=== PATIENT | female | born 1925 | race Caucasian/White ===

== ENCOUNTER 2016-12-15 12:42 | Inpatient (IN) | payer MEDICARE, OTHER ==
[2016-12-15] VITALS (8 sets, daily range): BP systolic 95–120; BP diastolic 52–84; PULSE 73–82; RESP 14–22; O2SAT 93–100
[~2016-12-15] VITALS: Ht 165.1 cm; Wt 52.1 kg
[~2016-12-15 12:42] MED LIST: levoquin PO
--- NOTE | 2016-12-15 13:44 | ED.REPORT ---
HPI-Abd Pain F 40 and Over Date of Service Dec 15, 2016 ED Provider: Benito Oneil MD An 89 year old female with a history of achalasia and uterine cancer presents to the ED complaining of upper abdominal pain that began 2 days ago. Patient has also been experiencing nausea. Her last bowel movement was 2 days ago. She denies vomiting or fever. Patient was seen on 11/11 for nausea and discharged home in good condition. Nursing Notes Stated Complaint: ABDOMINAL PAIN/NAUSEA/LIGHT HEADED Chief Complaint: Female Abdominal Pain Nursing Notes Reviewed: Yes Allergies: Coded Allergies: Penicillins (Verified Allergy, Severe, 12/15/16) Scheduled Aspirin Chew (Aspirin Chew) 81 Mg Chew 81 MG PO DAILY Levofloxacin (Levaquin) 500 Mg Tablet 500 MG PO DAILYAC Metoprolol Tartrate (Metoprolol Tartrate) 25 Mg Tablet 25 MG PO BID Scheduled PRN ([Acetaminophen]) 325 MG TABLET 325 MG PO Q6 PRN PRN For Mild Pain General Time Seen by MD: 12:56 Chief Complaint Abdominal pain Hx Obtained From: Patient Arrived By: Walk-in Sudden in Onset?: No Onset Occurred: 2 days ago Symptom Duration: Since onset Progression since Onset: Unchanged Location: : Diffuse Quality: Painful Radiation: : Does not radiate Severity: Current: Mild Severity: Maximum: Moderate Associated with: Reports: Nausea, Vomiting Pertinent Negative: Pt denies other symptoms Recent Healthcare: No recent doctor visit, Recent hospitalization (11/11: Nausea) Risk Factors )( AAA Risk Stratification Risk factors reviewed Past Medical History Past Medical History Notes: PCP: Dr. Henry Past Medical History Achalasia Uterine cancer UTI Past Surgical History Achalasia Smoking History Unknown if Ever Smoker Social History Other Social History: Good social support, Local resident Ambulatory Status Independent Review of Systems Constitutional: Denies: Chills, Fever Respiratory: Denies: Shortness of breath Cardiovascular: Denies: Chest pain GI: Reports: Abdominal pain, Constipation, Nausea, Denies: Vomiting Complete sys rev & neg: except as marked. Physical Exam Vital Signs Initial VS: Reviewed Head / Eyes: Atraumatic, Normocephalic, PERRL Extremities: Vascular intact, Neuro intact, No swelling, No tenderness Skin: Warm, Dry, No cyanosis Neurologic: Alert, Oriented, Nonfocal Psychiatric: Mood/affect normal, Behavior normal, Normal thought content General/Constitutional: Awake, Alert Respiratory / Chest: Atraumatic, Breath sounds NL, Breath sounds = bilat Cardiovascular: Heart rate NL, Regular rhythm, Heart sounds NL, No gallop, No murmurs, No rubs Abdomen: Atraumatic, Soft Tenderness/Guarding/Rebound: Positive: Tender epigastric Back: Atraumatic, Inspection NL Interpretation & Diagnostics Lab Results Interpretation Result Diagram: 12/19/16 0604 12/19/16 0604 Test 12/15/16 14:40 12/15/16 14:57 12/15/16 17:00 Urine Legionella pneumophilia Ag Negative (Negative) Urine Color Yellow (YELLOW) Urine Appearance Clear (CLEAR,HAZY) Urine pH 5.0 (5.0-8.0) Urine Specific [place] 1.025 (1.003-1.035) Urine Protein Tracemg/dL (NEG,TRACE) Urine Glucose (UA) Negativemg/dL (NEGATIVE) Urine Ketones Tracemg/dL (NEGATIVE) Urine Occult Blood Negative (NEGATIVE) Urine Nitrite Negative (NEGATIVE) Urine Bilirubin Negative (NEGATIVE) Urine Urobilinogen Normalmg/dL (NORMAL) Urine Leukocyte Esterase Negative (NEGATIVE) Urine RBC 0-2/hpf (0-2) Urine WBC 0-5/hpf (0-5) Urine Epithelial Cells None/hpf (NONE-MOD) Urine Crystals None seen (NONE SEEN) Urine Bacteria Few/hpf (NONE-FEW) Urine Hyaline Casts None/lpf (NONE) Urine Granular Casts None seen (NONE SEEN) Urine Waxy Casts None seen (NONE SEEN) Urine Red Blood Cell Casts None seen (NONE SEEN) Urine White Blood Cell Casts None seen (NONE SEEN) Urine Mucus None seen (None Seen) Urine Trichomonas None seen (NONE SEEN) Urine Yeast None (NONE SEEN) Urinalysis Comment Amorphous sediment Urine Culture Reflexed Not indicated Prothrombin Time 11.1sec (8.1-12.5) Prothromb Time International Ratio 1.04ratio Re-Eval/Medical Decision Med Decision/Clinical Course I assumed care of this patient at approximately [address] Oneil. EK:13 Sinus Rhythm - 81 BPM Left axis deviation No ST segment elevation Inverted T waves in the lateral leads When compared to prior dated 11/11/16, lateral T wave inversions are new. Labs: CBC: unremarkable Chemistry: unremarkable Lactic acid 2.8 Troponin: 0.995 Treated in the ED with: Nitroglycerin Aspirin Morphine Heparin bolus and infusion Consulted with Dr. Limon, Metal Checker - 16:28 Agrees with my evaluation and plan for heparinization, will not take to pie bakery laborer at this moment. Accepts consult. Consulted with Dr. Herrera Hospitalist - 16:[address] Hutchinson. Consulted with Aubrey Jimenezist - 16:55 Agrees with diagnosis and plan. Accepts admission. Dx: NSTEMI Repeat EKG is unchanged at 1705, continues to have inverted T waves in lateral leads. This patient was a very challenging historian and unable to provide much information. She reported epigastric pain both to Dr. Oneil as well as myself. At the time I assumed involvement in her care she was pending EKG. At the time that do ischemic changes were noted troponin was added to her workup and resulted as positive. She was aggressively treated at that time as above and cardiology was consulted. She was admitted for further management and remained hemodynamically stable. She reported improvement in her chest pain with nitroglycerin and morphine. Counseled Regarding: Diagnosis, Lab results, Need for admission Discharge & Departure Shift Change Sign-Out Patient Care Transferred: Yes Discussed Complaint(s): Yes Laboratory Evaluation: Ordered, not yet done Response to Therapy: Unchanged Dr. Sanjay Chavis Primary Impression: NSTEMI (non-ST elevated myocardial infarction) Additional Impressions: Chest pain Chest pain type: chest pain due to myocardial ischemia Qualified Code: I20.9 - Angina pectoris, unspecified Epigastric pain Elevated lactic acid level Elevated troponin I level Disposition: ADMITTED TO HOSPITAL Discharge Condition All VS Reviewed: Yes Condition: Stable Referrals: Atilio Henry MD (PCP) Care Transferred to: Dr. Chavis Care Transferred at: 15:00 Crit Care Except Billable Proc Time Spent: 105-134 minutes Services Performed: Patient management by me, Time spent at bedside, Reviewing test results, Reviewing imaging, Discussing patient care, Documentation in record, Time with fam/surrogate Critical Care Notes: Sanjay Herzog Attestation Portions of this note were transcribed by Phong Capone. I, Dr. Oneil personally performed the history, physical exam and medical decision-making; I reviewed and confirmed the accuracy of the information in the transcribed note. Signed by: Rosenda Estrella, 12/15/16 1500. copies to: Atilio Henry MD, Benito Rock MD Dec 15, 2016 13:44 PHONG CAPONE Dec 15, 2016 13:52 JINA CLAIRE Dec 15, 2016 16:26 Sanjay Chavis MD Dec 15, 2016 22:11 Urine White Blood Cell Casts None seen (NONE SEEN) Urine Mucus None seen (None Seen) Urine Trichomonas None seen (NONE SEEN) Urine Yeast None (NONE SEEN) Urinalysis Comment Amorphous sediment Urine Culture Reflexed Not indicated Prothrombin Time 11.1sec (8.1-12.5) Prothromb Time International Ratio 1.04ratio Re-Eval/Medical Decision Med Decision/Clinical Course I assumed care of this patient at approximately [address] Oneil. EK:13 Sinus Rhythm - 81 BPM Left axis deviation No ST segment elevation Inverted T waves in the lateral leads When compared to prior dated 11/11/16, lateral T wave inversions are new. Labs: CBC: unremarkable Chemistry: unremarkable Lactic acid 2.8 Troponin: 0.995 Treated in the ED with: Nitroglycerin Aspirin Morphine Heparin bolus and infusion Consulted with Dr. Limon, Metal Checker - 16:28 Agrees with my evaluation and plan for heparinization, will not take to pie bakery laborer at this moment. Accepts consult. Consulted with Dr. Herrera Hospitalist - 16:[address] Hutchinson. Consulted with Dr. Hutchinson, Hospitalist - 16:55 Agrees with diagnosis and plan. Accepts admission. Dx: NSTEMI Repeat EKG is unchanged at 1705, continues to have inverted T waves in lateral leads. This patient was a very challenging historian and unable to provide much information. She reported epigastric pain both to Dr. Oneil as well as myself. At the time I assumed involvement in her care she was pending EKG. At the time that do ischemic changes were noted troponin was added to her workup and resulted as positive. She was aggressively treated at that time as above and cardiology was consulted. She was admitted for further management and remained hemodynamically stable. She reported improvement in her chest pain with nitroglycerin and morphine. Counseled Regarding: Diagnosis, Lab results, Need for admission Discharge & Departure Shift Change Sign-Out Patient Care Transferred: Yes Discussed Complaint(s): Yes Laboratory Evaluation: Ordered, not yet done Response to Therapy: Unchanged Dr. Sanjay Chavis Primary Impression: NSTEMI (non-ST elevated myocardial infarction) Additional Impressions: Chest pain Chest pain type: chest pain due to myocardial ischemia Qualified Code: I20.9 - Angina pectoris, unspecified Epigastric pain Elevated lactic acid level Elevated troponin I level Disposition: ADMITTED TO HOSPITAL Discharge Condition All VS Reviewed: Yes Condition: Stable Referrals: Atilio Henry MD (PCP) Care Transferred to: Dr. Chavis Care Transferred at: 15:00 Crit Care Except Billable Proc Time Spent: 105-134 minutes Services Performed: Patient management by me, Time spent at bedside, Reviewing test results, Reviewing imaging, Discussing patient care, Documentation in record, Time with fam/surrogate Critical Care Notes: Sanjay Herzog Attestation Portions of this note were transcribed by Phong Capone. I, Dr. Oneil personally performed the history, physical exam and medical decision-making; I reviewed and confirmed the accuracy of the information in the transcribed note. Signed by: Rosenda Estrella, 12/15/16 1500. copies to: Atilio Henry MD, Donald L MD Dec 15, 2016 13:44 PHONG CAPONE Dec 15, 2016 13:52 JINA CLAIRE Dec 15, 2016 16:26 Sanjay Chavis MD Dec 15, 2016 22:11 Shift Change Sign-Out Patient Care Transferred: Yes Discussed Complaint(s): Yes Laboratory Evaluation: Ordered, not yet done Response to Therapy: Unchanged Dr. Chavis Primary Impression: NSTEMI (non-ST elevated myocardial infarction) Disposition: ADMITTED TO HOSPITAL Discharge Condition All VS Reviewed: Yes Condition: Stable Referrals: Atilio Henry MD (PCP) Care Transferred to: Dr. Chavis Care Transferred at: 15:00 Scribe Attestation Portions of this note were transcribed by Phong Capone. I, Dr. Oneil personally performed the history, physical exam and medical decision-making; I reviewed and confirmed the accuracy of the information in the transcribed note. Signed by: Rosenda Estrella, 12/15/16 1500. copies to: Atilio Henry MD, Donald L MD Dec 15, 2016 13:44 PHONG CAPONE Dec 15, 2016 13:52 JINA CLAIRE Dec 15, 2016 16:26
[2016-12-15 13:50] LABS: BASOPHILS % (AUTO) 0.1 % (0-3); EOSINOPHILS % (AUTO) 0.2 % (0-5); MONOCYTES % (AUTO) 8.2 % (4-12); Mean Corpuscular Hemoglobin 29.9 pg (27.0-35.0); Mean Corpuscular Volume 90.1 fL (81-100); NEUTROPHILS % (AUTO) 75.1 % (40-74); Platelet Count 173 bil/L (150-400)
[2016-12-15 14:19] LABS: Magnesium 2.1 mg/dL (1.6-2.6)
[2016-12-15] MEDS ORDERED: 0.9% Sodium Chloride 1,000 ML IV ONE (14:30)
[2016-12-15] MEDS: Ondansetron 2 mg/mL 2 mL Inj IVPUSH PRN ×5 (14:45→21:32)
[2016-12-15] MEDS: HYDROmorphone 0.5 mg/0.5 mL iSecure Syringe IVPUSH PRN ×2 (14:57→16:31)
[2016-12-15 15:44] LABS: APPEARANCE,URINE CLEAR (CLEAR,HAZY); COLOR,URINE YELLOW (YELLOW)
[2016-12-15 15:45] LABS: OCCULT BLOOD,URINE NEGATIVE (NEGATIVE); UROBILINOGEN,URINE NORMAL (NORMAL)
[2016-12-15] MEDS ORDERED: Heparin 25K Unit/500mL 0.45 NS 25,000 UNIT in IV Premix 1 EACH IV ONE (16:30)
[2016-12-15] MEDS ORDERED: Heparin 5,000 Unit/mL Inj IVPUSH ONE (16:30)
[2016-12-15] MEDS ORDERED: Alum-Mag Hydrox-Simeth 30 mL Suspension PO PRN ×2 (17:00→17:10)
[2016-12-15] MEDS ORDERED: Atropine 1 mg/10 mL (Code) Syringe IVPUSH PRN (17:00)
[2016-12-15] MEDS ORDERED: Polyethylene Glycol (PEG) 17 Gm Powder PO PRN ×2 (17:00→17:10)
[2016-12-15] MEDS ORDERED: Senna-Docusate 8.6-50 mg Tablet PO PRN (17:00)
[2016-12-15] MEDS ORDERED: Heparin 25K Unit/500mL 0.45 NS 25,000 UNIT in IV Premix 1 EACH IV SCH (17:10)
--- NOTE | 2016-12-15 17:21 | PCM.HPMED ---
Subjective Date of Service Dec 15, 2016 Primary Provider: Admitting Physician: Primary Care Physician: Atilio Henry MD Attending Physician: Admit Status: Admit to [facility], [facility] Telemetry Chief Complaint: Two day history of epigastric pain . History of Present Illness: Mrs. Whitney Delgado is a pleasant 89-year-old lady with past medical history significant for achalasia and uterine cancer who presented to the [facility] Emergency Department complaining of 2 days of epigastric pain. Patient otherwise denied any fever, chills, cough or sputum production. Beyond that, patient was unable to provide much history due to ongoing epigastric pain and nausea. Per the patient's son (who is currently hospitalized for gallstone pancreatitis) , the patient is very independent at baseline. She ambulates without any assistance devices and rides a tricycle as much as 1-1/2 miles daily. She is able to negotiate stairs without difficulty, rarely sees her primary care physician, and is on no prescription medications. It does not seem that she uses [id number] medications often either. The patient was able to tell me that she did not get an influenza vaccine this year and that she would not want one if offered. In the Emergency Department, patient was noted to have EKG changes and elevated troponin consistent with non-ST elevation myocardial infarction and was recommended for admission and further evaluation. . Review of Systems: Unknown, except as above in the History of Present Illness, due to patient's inability to participate in review. . Allergies Coded Allergies: Penicillins (Verified Allergy, Severe, 12/15/16) Home Medications None . PMH Achalasia Urinary tract infection, history of Uterine cancer . Surgical History Surgery for achalasia and likely hysterectomy for uterine cancer, although this was not confirmed. . Family History Patient's mother seemed to suffer from a Zenker's diverticulum, but lived to the age of 94. Patient's father in his 90s. She has one son, Robert, age 67, who is in reasonably good health. . Social History Hx Alcohol Use: No (Patient's son reported that she drank heavily in the past, but this seems to have been decades ago.) Hx Substance Use: No Hx Tobacco Use: Yes (smoked 20 years, quit 40 years ago) Smoking Status: Former Smoker (Patient smoked for "about 20 years" per her son. He could not remember how much she smoked on a daily basis.) Living Arrangement: with Family (Patient lives with her son, Robert. 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 Patient has been for about 13 years. Her late suffered from alcohol use disorder for many years. . Exam Vital Signs Vital Sign - Last Date Time Temp Pulse Resp B/P Pulse Ox O2 Delivery O2 Flow Rate FiO2 12/15/16 16:50 78 14 95/54 93 Nasal Cannula 4 12/15/16 12:46 37 Exam General: No acute distress, well-developed, malnourished, limited interaction due to medical condition HEENT: Normocephalic, atraumatic. External ears without defect. Pupils equal, round, and reactive to light and accommodation. Anicteric sclerae, moist conjunctivae, and no lid lag. Oropharynx free of erythema and cobble stoning with somewhat dry mucosa. Edentulous. Hard of hearing with hearing aids. Neck: Supple with full range of motion. No jugular venous distension. No bruits. No lymphadenopathy or thyromegaly. Cardiovascular: Regular rate and rhythm with no murmurs, rubs, or gallops appreciated Pulmonary: Clear to auscultation bilaterally with no crackles, wheezes, or rhonchi. Normal respiratory effort with no use of accessory muscles. Abdomen: Bowel tones present. Slightly firm, moderately tender epigastrium, nondistended. No hepatosplenomegaly or masses appreciated. Extremities: No clubbing, cyanosis, edema, or lymphadenopathy appreciated. Skin: Normal temperature, turgor, and texture; no rash, ulcers, or subcutaneous nodules appreciated. Neurological: Cranial nerves grossly intact. Diminished muscle strength, tone, and bulk. No known gait impairment. Psychiatric: Difficult to assess due to acute medical condition. Alert and oriented to person, place, and time. . Lab and Diagnostics Labs Lactic acid: 2.8 Troponin: 0.995 . Result Diagram: 12/15/16 1340 12/15/16 1340 X-Rays, CTs and MRIs X-RAY CHEST ONE VIEW, PORTABLE IMPRESSION: New mild pneumonia left lower lobe. Dictated and approved by: Jason Moore M.D. on 12/15/2016 at 17:24 . 12-lead ECG Sinus rhythm, rate 81, QTC 459, inverted T waves in lateral leads 4, 5, and 6 . Cardiac Echo Impressions Echocardiogram ordered and pending . Assessment & Plan Mrs. Whitney Delgado is a pleasant 89-year-old lady with past medical history significant for achalasia and uterine cancer who presented to the [facility] Emergency Department complaining of 2 days of epigastric pain. She was admitted for further evaluation of likely non-ST elevation myocardial infarction, epigastric pain, and elevated lactic acid level. 1. Non-ST elevation myocardial infarction, present on admission. Ongoing. - Appropriate therapy with aspirin, morphine, nitroglycerin, and heparin initiated in the Emergency Department - Continue treatment above with serial troponins, telemetry, and echocardiogram - Cardiology aware and will consult tomorrow morning 2. Epigastric pain, present on admission. Ongoing. - Pain with nausea ongoing despite treatment with morphine and ondansetron - Patient denied any recent illness, but should maintain low threshold for further evaluation of acute infection, peptic ulcer disease, gastritis, perforation, ischemia, other - Continue analgesia and antiemetic as needed - Patient currently nothing by mouth with maintenance fluids 3. Elevated lactic acid, present on admission. Ongoing. - Continue serial measurements until resolved - Concern for ongoing ischemia, cardiac or other - Consider further infectious workup, if persistent - Acetaminophen as needed for mild pain/fever/headache - Opioid analgesia as needed - Antiemetic as needed - Bowel regimen as needed Patient status: Patient was admitted under inpatient status with expected length of stay greater than 2 minutes due to severity of presenting symptoms, complexity of treatment plan, and risk of adverse event.. . Pain Evaluation: Pain not Controlled GI Prophylaxis: Not indicated VTE Prophylaxis Indicated: Meets Criteria for Anticoag Therapy VTE Prophylaxis: Other (Heparin drip) VTE Mechanical Devices: Intermittant Pneumatic CD Resuscitation Status: DNR/DNI:Do Not Resuscitate/Intubate (Patient and son stated that patient would prefer to " naturally" and would not want extraordinary measures taken for resuscitation.) copies to: Atilio Henry MD, Robert W MD Dec 15, 2016 17:21
--- NOTE | 2016-12-15 17:25 | DRSVH ---
PROCEDURE: X-RAY CHEST ONE VIEW, PORTABLE ([id number]) INDICATIONS: Chest pain TECHNIQUE: One view of the chest was acquired. COMPARISON: [facility], CR, XR CHEST 1VW (PORTABLE), 11/11/2016, 12:51. FINDINGS: Surgical changes and devices: None. Lungs and pleura: No pleural effusions or just above the diaphragm, in an area previously normal.pn eumothorax. Lungs are abnormal with a left lower lobe pneumonia. Mediastinum: Mediastinal contours appear normal. Heart size is normal. Bones and chest wall: No suspicious bony lesions. Overlying soft tissues appear unremarkable. IMPRESSION: New mild pneumonia left lower lobe. Dictated by: Jason Moore M.D. on 12/15/2016 at 17:24 Approved by: Jason Moore M.D. on 12/15/2016 at 17:24
--- NOTE | 2016-12-15 18:33 | NUR ---
Admit/Heparin Patient arrived from ED via gurney. Patient c/o severe nausea unrelieved by zofran and very pale, was able to scoot from gurney to bed with min assist. Patient also states she has stomach pain but was unable to give me a number. VSS. Patient on 3L O2 via NC. Hep drip infusing at 600/hr, recieved call from lab that PTT was 167, stopped heparin immediately and ordered a PTT draw for one hour later. MD aware. Patient sitting in bed, call light within reach and frequent rounding in place.
[2016-12-15] MEDS: 0.9% Sodium Chloride 1,000 ML IV SCH ×2 (18:48→19:34)
[2016-12-15] MEDS ORDERED: Dextrose 5% 0.45% NaCl 1,000 ML IV SCH (19:10)
[2016-12-15] MEDS ORDERED: Nitroglycerin 2% 1 Gm Ointment TOPICAL SCH (19:10)
[2016-12-15 19:22] LABS: INR 1.04 ratio
[2016-12-15 19:48] LABS: Magnesium 1.9 mg/dL (1.6-2.6)
[2016-12-15 19:49] LABS: TROPONIN T 0.731 ug/L (0.0-0.011)
[2016-12-15] MEDS: Sodium Chloride LOK Flush 10 mL Syringe IVFLUSH SCH (21:28)
[2016-12-16] VITALS (10 sets, daily range): BP systolic 100–122; BP diastolic 50–76; PULSE 64–81; RESP 16–18; O2SAT 90–98
[2016-12-16 03:37] LABS: BASOPHILS % (AUTO) 0.1 % (0-3); EOSINOPHILS % (AUTO) 0 % (0-5); MONOCYTES % (AUTO) 6.9 % (4-12); Mean Corpuscular Volume 90.2 fL (81-100); NEUTROPHILS % (AUTO) 88.1 % (40-74); Platelet Count 146 bil/L (150-400)
[2016-12-16] MEDS: Ondansetron 2 mg/mL 2 mL Inj IVPUSH PRN ×5 (04:16→23:49)
--- NOTE | 2016-12-16 06:24 | NUR ---
GI: pt. c/o abdominal pain, nausea, no emesis. Pt. states "I just don't feel well all over," pt. also has not had bm in 3 days but has had poor appetite. Pt. had low urine output, 150cc dark becki urine. zofran given for nausea, tylenol given for pain, pt. did not feel well after given iv dilaudid in ER. senna and miralax also given.
[2016-12-16] MEDS: HYDROmorphone 0.5 mg/0.5 mL iSecure Syringe IVPUSH PRN ×2 (07:42→11:24)
[2016-12-16] MEDS: Sodium Chloride LOK Flush 10 mL Syringe IVFLUSH SCH ×2 (07:48→16:30)
[2016-12-16] MEDS ORDERED: levoFLOXacin Inj 750 MG in IV Premix 1 EACH IV SCH (08:30)
[2016-12-16] MEDS: 0.9% Sodium Chloride 1,000 ML IV SCH ×3 (11:01→17:56)
--- NOTE | 2016-12-16 11:03 | CONS ---
[address] [address] CONSULTATION REPORT PATIENT: RAFFY BASURTO : 1925 MR#: [id number] ADMIT: 12/15/2016 JOB ID: [id number] DATE OF SERVICE: REQUESTING PHYSICIAN: Nir Hutchinson MD CHIEF COMPLAINT: History of epigastric discomfort. HISTORY OF PRESENT ILLNESS: This 89-year-old lady was brought into the hospital via ambulance. The patient is not capable of providing a reliable history. She gets easily confused. This is what I have been able to piece through the charts. She came in apparently for epigastric pain. According to the patient, her son called the ambulance because the son himself was having chest discomfort and she just came for the ride, and is unaware as to why she got admitted. She denies any prior cardiac history. She is currently not in any discomfort. According to the notes, the patient was noted to have elevated troponin and EKG changes, and hence was admitted to the hospital. REVIEW OF SYSTEMS: Not possible because of the patient's inability to participate. ALLERGIES: As per chart, PENICILLIN. MEDICATIONS: None. PAST MEDICAL HISTORY: Uterine cancer. PAST SURGICAL HISTORY: Surgery for achalasia and hysterectomy. FAMILY HISTORY: As per the chart, father had a Zenker's diverticulum. Both her parents lived into their 90s. PERSONAL HISTORY: Nonsmoker. Nondrinker. She lives with her son, Robert. PHYSICAL EXAMINATION: Comfortable, elderly lady, is very pleasant, but confused. Pulse 81, blood pressure 117/76. Neck: Supple. No JVD. Chest: Bibasilar rales. Clear only partially with coughing. Heart sounds S1, S2, regular. No gallops. Abdomen is soft. Minimal epigastric tenderness upon deep palpation. Extremities: Negative for CCE. Moving all four limbs appropriately. Follows commands. LABORATORY DATA: White count is 13, hemoglobin is 11. Lactic acid was elevated minimally at 2.8. Total cholesterol 218, LDL 98. Troponin has ranged around 0.7. TSH was normal. EKG was reviewed. She has lateral ST-T abnormality. There is subtle ST-segment elevation along with T-wave inversions suggestive of an acute OK. ASSESSMENT AND PLAN: 1. This lady presents with an acute coronary syndrome. EKG has changes suggestive of lateral wall involvement. Given advanced age, history of uterine cancer, as well as possibly moderate dementia, I think it would be appropriate to manage her medically for now. If she gets symptomatic, consideration can be given to performing an angiogram. If there is a family member available, I would like to talk to him also so that appropriate care plan can be put in place. From the chart, it appears that the patient has made some decisions because she is reportedly DNR and DNI. The other thing, of course, would be to take into consideration her overall prognosis, especially with regard to her age and underlying uterine cancer. 2. Medication-wolff, I would recommend that we add beta blockers and, if she can tolerate it, I would also recommend adding clopidogrel to her current regiment. She had an echocardiogram done today. I will be reviewing it and making further recommendations.
--- NOTE | 2016-12-16 11:15 | DRSVH ---
Version 3 [facility] [address] [place] [address] Echocardiogram Report Name: RAFFY BASURTO LStudy Date: 12/16/2016 Height: 65 in Hospital Exam Location: [facility] Weight: 102 lb Gender: Female BSA: 1.5 m2 : 1925 Age: 89 yrs BP: 117/76 mmHg Reason For Study: Chest pain Ordering Physician: HOSPITALIST [facility] Performed By: Isaias Topete Referring Physician: KHANG HERNANDEZ Interpretation Summary Left ventricular ejection fraction is estimated to be 30%. The apical 2/3 is hypokinetic. The basal segments are hypercontractile. Lateral wall hypokinesis. Consider takasubo's.repeat echo in 2 days The left atrium is severely dilated. There is mild mitral regurgitation. The right ventricular systolic pressure is estimated at 49 mmHg assuming a right atrial pressure of 15 mm Hg. The IVC is dilated (diameter is greater than 2.1 cm) and it collapses less than 50% with a sniff. This suggests a high right atrial pressure of 15 mm Hg. Procedure: A two-dimensional transthoracic echocardiogram with color flow and Doppler was performed. The patient had some difficulty remaining still at the beginning of the exam due to nausea and at the end of the exam there was some software difficulty with color doppler. Overall, the exam is of good technical quality though. There is no prior echocardiogram noted for this patient. The patient was in normal sinus rhythm during the exam. Left Ventricle: The left ventricle is normal in size. There is normal left ventricular wall thickness. Left ventricular ejection fraction is estimated to be 30%. The apical 2/3 is hypokinetic. The basal segments are hypercontractile. Lateral wall hypokinesis. Assessment of diastolic parameters indicates a relaxation abnormality of the left ventricle, consistent with normal filling pressures. Right Ventricle: The right ventricle is normal in size, thickness and function. Atria: The left atrium is severely dilated. The right atrium is mildly dilated. The interatrial septum is intact with no evidence for an atrial septal defect. Mitral Valve: The mitral valve leaflets are mildly calcified. There is mild mitral regurgitation. Aortic Valve: The aortic valve is trileaflet. The aortic valve opens well. There is trace aortic regurgitation. Tricuspid Valve: The tricuspid valve is normal. There is moderate tricuspid regurgitation. The right ventricular systolic pressure is estimated at 49 mmHg assuming a right atrial pressure of 15 mm Hg. Pulmonic Valve: The pulmonic valve leaflets are thin and pliable; valve motion is normal. There is a trace or physiologic amount of pulmonic regurgitation. Great Vessels: The aortic root is normal size. The ascending aorta is mildly enlarged. The pulmonary artery is normal size. The IVC is dilated (diameter is greater than 2.1 cm) and it collapses less than 50% with a sniff. This suggests a high right atrial pressure of 15 mm Hg. Pericardium/ Pleura There is no pericardial effusion. There is a moderately large left-sided pleural effusion. MMode/2D Measurements & Calculations LVIDd: 4.0 cm RA long axis LVOT diam LVIDs: 3.4 cm LA A2 area: 26.8 cm FS: 15.2 % LA A4 area: 34.6 cm RA area AoV Opening IVSd: 0.84 cm LA length (vol): 6.4 cm LVPWd: 0.76 cm LA vol: 123.0 ml : 18.0 cm Ao root diam LA vol index RA vol : 52.0 ml asc Aorta : 82.8 ml/m2 RA Diam: 3.3 cm : 35.0 mm2 LV shepherd. diameter/BSA LV sys. diameter/BSA TAPSE: 2.8 cm (cm/m^2): 2.7 (cm/m^2): 2.3 Doppler Measurements & Calculations Ao V2 max: 99.6 cm/sec MV E max dm MV E/A: 0.83 TR max dm Ao max P.0 mmHg : 104.2 cm/sec : 290.8 cm/sec Ao mean P.2 mmHg MV A max dm TR max PG LVOT Max Dm : 125.7 cm/sec : 33.8 mmHg : 91.6 cm/sec MVA(VTI): 1.8 cm2 PA V2 max SUSAN(I,D): 2.7 cm : 61.9 cm/sec sev ratio: 0.95 PA mean PG : 0.77 mmHg MV V2 mean: 76.5 cm/sec Ao V2 mean LV V1 max PG PA V2 mean MV mean P.6 mmHg : 70.2 cm/sec : 42.6 cm/sec MV V2 VTI: 29.6 cm Ao V2 VTI: 19.9 cm LV V1 VTI PA pr(Accel) MV dec time: 0.16 sec SUSAN(V,D): 2.6 cm2 : 19.0 cm : 38.5 mmHg SUSAN indexed to BSA (cm^2/m^2): 1.8 Electronically signed by: Khurram Singh on Reading Physician:12/16/2016 10:34 AM
--- NOTE | 2016-12-16 14:29 | NUR ---
Social Work Note: Initial Assessment Data& Assessment: EMR reviewed. SW met with pt at bedside to discuss discharge planning, SW role explained. Whitney Delgado is a 89 year old female admitted on 12/15/2016 for NON-STEMI. Pt has Medicare and [employer] Supp[employer]. Pt sees Atilio Henry MD for primary care. Pt lives in [place] with her son who is also a pt here at the hospital. Pt was here visiting pt when she began to not feel well and walked down to the ED. Pt is normally independent at baseline. Pt son has only recently begun driving her to appointments. Pt son only helps out with cleaning and cooking. Pt is otherwise independent. Pt does not normally wear oxygen at home. Pt denies HH or SNF hx. Pt denies LT insurance or VA benefits. Per previous conversation with pt son, pt son believes they both have DPOA paperwork completed in a safety box in the bank. SW requested a copy when possible. Pt son to transport her home when medically ready. SW to continue to follow for MD and PT recommendations and evaluations. Pt denies any other needs at this time. SW to continue to follow. Plan: Anticipated discharge home with HH vs. SNF. SW to continue to follow for MD and PT recommendations and evaluations. Pt denies any other needs at this time. SW to continue to follow. OBBBI Restrepo Addendum: 12/16/16 at 1435 by LIBRA LOPEZ Amended: Links added.
--- NOTE | 2016-12-16 15:11 | DRSVH ---
PROCEDURE: ANGIO ABD/PELVIS W/CON INDICATIONS: intractible Abdomenal pain r/o mesenteric ischemia TECHNIQUE: After the administration of intravenous contrast, 2 and 5 mm sections acquired from the diaphragm to the iliac crests. 3-dimensional maximum intensity projection (MIP) coronal and sagittal reformats, a nd/or 3-dimensional volume rendering reformatting was then performed. For radiation dose reduction, the following was used: automated exposure control. COMPARISON: [facility], CR, CHEST 2VW, 05/22/2010, 15:34. [facility], CR, CHEST 2VW, 10/04/2011, 15:09. FINDINGS: Image quality: Excellent. Extravascular tissues: There are small low density bilateral pleural effusions. There is bilateral b asilar atelectasis. The heart is enlarged. Liver and spleen are normal in size and overall enhancemen t. There is a subtle hypervascular focus within the right hepatic lobe which may represent a hepatic hemangioma or a transient hepatic attenuation difference (series 4, image 26). Gallbladder is unremar kable. Biliary system is non dilated. Pancreas enhances normally. No adrenal nodules. There is mul tifocal cortical thinning bilaterally suggesting prior infection or infarction. The left kidney is in the pelvis. Non-opacified bowel loops demonstrate normal wall thickness and caliber. No free fluid or air. No retroperitoneal or mesenteric adenopathy. No ventral hernias. No suspicious bony abnorm alities. There is a mild superior endplate depression at L1. No recent prior comparisons are availabl e to determine the acuity of this finding. Abdominal aorta: Dense atheromatous calcifications are present throughout the abdominal aorta. No ane urysmal dilatation. Atheromatous calcifications are present within the bilateral iliac arteries. No i liac artery aneurysms. 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 There is a mild stenosis at the origin of the SMA secondar y to ostial calcification. The GUEVARA is not visualized and may be occluded. Renal arteries: The bilateral renal arteries are patent. IMPRESSION: 1. 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 2. No suspicious bowel wall mucosal thickening, pneumatosis, or free abdominal fluid. Given the patency of the mesenteric vessels and the lack of suspicious bowel wall findings, mesenteri c ischemia is likely not the etiology of the patient's abdominal pain. 3. Superior endplate depression at L1, the acuity of which is unknown. 4. Small bilateral low density pleural effusions and compressive atelectasis. 5. Small hypervascular hepatic focus which may represent a hepatic hemangioma but is incompletely tova racterized. Nonemergent multiphase hepatic protocol CT may be helpful to further characterize this fi nding if clinically indicated. Dictated by: Simran Meza M.D. on 12/16/2016 at 15:09 Approved by: Simran Meza M.D. on 12/16/2016 at 15:09
--- NOTE | 2016-12-16 15:39 | NUR ---
GI/Pain Pt c/o nausea, given 4mg of Zofran with slight relief. Pt c/o abdominal pain, pt is unable to verbalize severity, or quality. Tylenol had been given 2 hours prior with little to no relief. IV push of 0.5mg of dilaudid was administered, with no relief. pt c/o nausea again. 4mg of zofran was administered with slight relief. Pt continued to complain of pain in abdomen. Pt was sitting up in bed hunched over with emesis bag. Pt was given 2mg of IV morphine and 4 mg of zofran and continued to have abdominal pain and nausea. lead nitrate processor RN and MD were notified. MD ordered a stat CT abdominal scan. It was decided not to administer any more pain medication at this time. Pt continued to have pain and nausea. Pt was given 8mg of Zofran. Pt continues to c/o pain and nausea.
--- NOTE | 2016-12-16 15:43 | NUR ---
took over pt care at 3pm
--- NOTE | 2016-12-16 16:03 | PCM.PNMED ---
Subjective Date of Service Dec 16, 2016 Subjective Mrs. Whitney Delgado is a pleasant 89-year-old lady with past medical history significant for achalasia and uterine cancer who admitted for treatment of 2 days of epigastric pain and difficulty breathing. Hospital Day 1 Overnight: Nursing reported no overnight events. Today: Patient awake in bed stated she is feeling short of breath no complaints noted otherwise. ROS negative except at mentioned above. Exam Vital Signs Vital Sign - Last Date Time Temp Pulse Resp B/P Pulse Ox O2 Delivery O2 Flow Rate FiO2 12/16/16 05:21 Supplement Oxygen 12/16/16 04:41 36.7 75 16 118/66 94 2.00 Intake and Output 12/15/16 12/15/16 12/16/16 Cumulative From/Thru 15:00 23:00 07:00 12/15/16 12:46 - 12/16/16 06:47 Intake Total 1000 ml 867 ml 1867 ml Output Total 150 ml 150 ml Balance 1000 ml 717 ml 1717 ml Intake Oral 300 ml 300 ml IV Total 1000 ml 567 ml 1567 ml Output Urine Total 150 ml 150 ml Exam General: No acute distress, well-developed, malnourished, limited interaction due to medical condition HEENT: Normocephalic, atraumatic. External ears without defect. Pupils equal, round, and reactive to light and accommodation. Anicteric sclerae, moist conjunctivae, and no lid lag. Oropharynx free of erythema and cobble stoning with somewhat dry mucosa. Edentulous. Hard of hearing with hearing aids. Neck: Supple with full range of motion. No jugular venous distension. No bruits. No lymphadenopathy or thyromegaly. Cardiovascular: Regular rate and rhythm with no murmurs, rubs, or gallops appreciated Pulmonary: Clear to auscultation bilaterally with no crackles, wheezes, or rhonchi. Normal respiratory effort with no use of accessory muscles. Abdomen: Bowel tones present. Slightly firm, moderately tender epigastrium, nondistended. No hepatosplenomegaly or masses appreciated. Extremities: No clubbing, cyanosis, edema, or lymphadenopathy appreciated. Skin: Normal temperature, turgor, and texture; no rash, ulcers, or subcutaneous nodules appreciated. Neurological: Cranial nerves grossly intact. Diminished muscle strength, tone, and bulk. No known gait impairment. Psychiatric: Difficult to assess due to acute medical condition. Alert and oriented to person, place, and time. IVs and Medications Medications Reviewed: Medications were reviewed in detail Lab and Diagnostics Intake and Output 12/15/16 12/15/16 12/16/16 Cumulative From/Thru 15:00 23:00 07:00 12/15/16 12:46 - 12/16/16 06:47 Intake Total 1000 ml 867 ml 1867 ml Output Total 150 ml 150 ml Balance 1000 ml 717 ml 1717 ml Intake Oral 300 ml 300 ml IV Total 1000 ml 567 ml 1567 ml Output Urine Total 150 ml 150 ml Laboratory Tests Test 12/15/16 17:00 12/15/16 18:24 12/15/16 21:15 12/16/16 03:10 Prothrombin Time 11.1sec (8.1-12.5) Prothromb Time International Ratio 1.04ratio Activated Partial Thromboplast Time 167.6sec (22.8-33.0) 115.5sec (22.8-33.0) 40.3sec (22.8-33.0) Magnesium Level 1.9mg/dL (1.6-2.6) Total Creatine Kinase 192U/L (21-215) 203U/L (21-215) Creatine Kinase MB 25.8ng/mL (0.0-5.3) 27.7ng/mL (0.0-5.3) Creatine Kinase MB % 13.4% (0.0-5.0) 13.6% (0.0-5.0) Troponin T 0.731ug/L (0.0-0.011) 0.746ug/L (0.0-0.011) Pro-B-Type Natriuretic Peptide 99001ey/mL (0-738) Thyroid Stimulating Hormone (TSH) 1.430uIU/mL (0.450-4.500) Lactic Acid Level 2.8mmol/L (0.4-2.0) Lipase 14U/L (13-60) Procalcitonin 2.65ng/mL (See Comment) 4.23ng/mL (See Comment) White Blood Count 13.4th/mm3 (3.8-10.1) Red Blood Count 4.30mil/mm3 (3.90-5.20) Hemoglobin 12.9g/dL (12.0-15.6) Hematocrit 38.8% (35.0-46.0) Mean Corpuscular Volume 90.2fL (81-100) Mean Corpuscular Hemoglobin 30.0pg (27.0-35.0) Mean Corpuscular Hemoglobin Concent 33.2% (32.0-37.0) Red Cell Distribution Width 14.0% (12.3-15.4) Platelet Count 146bil/L (150-400) Neutrophils (%) (Auto) 88.1% (40-74) Lymphocytes (%) (Auto) 4.6% (14-46) Monocytes (%) (Auto) 6.9% (4-12) Eosinophils (%) (Auto) 0% (0-5) Basophils (%) (Auto) 0.1% (0-3) Sodium Level 138mEq/L (134-144) Potassium Level 4.4mEq/L (3.5-5.2) Chloride Level 101mEq/L (97-108) Carbon Dioxide Level 26mmol/L (18-29) Blood Urea Nitrogen 16mg/dL (8-27) Creatinine 0.80mg/dL (0.57-1.00) Estimat Glomerular Filtration Rate 97mL/min (>59) Glucose Level 189mg/dL (60-99) Calcium Level 9.3mg/dL (8.5-10.1) Triglycerides Level 48mg/dL (0-149) Cholesterol Level 218mg/dL (100-199) LDL Cholesterol, Calculated 98.400mg/dL (0-99) VLDL Cholesterol 9.600mg/dL HDL Cholesterol 110mg/dL (>39) Cholesterol/HDL Ratio 1.98 (0.0-4.4) Test 12/16/16 08:20 12/16/16 10:10 12/16/16 13:40 Hemoglobin 11.4g/dL (12.0-15.6) Hematocrit 34.6% (35.0-46.0) Activated Partial Thromboplast Time 78.7sec (22.8-33.0) Lactic Acid Level 1.5mmol/L (0.4-2.0) Total Creatine Kinase 195U/L (21-215) Microbiology 12/16/16 Adenovirus DNA (PCR) - Final, Complete Not Detected 12/16/16 Coronavirus 229E PCR - Final, Complete Not Detected 12/16/16 Coronavirus HKU1 PCR - Final, Complete Not Detected 12/16/16 Coronavirus NL63 PCR - Final, Complete Not Detected 12/16/16 Coronavirus OC43 PCR - Final, Complete Not Detected 12/16/16 Influenza Type A (PCR) - Final, Complete Not Detected 12/16/16 Influenza Type B (PCR) - Final, Complete Not Detected 12/16/16 Human Metapneumovirus (PCR) (BEL) - Final, Complete Not Detected 12/16/16 Rhinovirus (PCR)(BEL) - Final, Complete Not Detected 12/16/16 Parainfluenza Virus Type 1 (PCR) - Final, Complete Not Detected 12/16/16 Parainfluenza Virus Type 2 (PCR) - Final, Complete Not Detected 12/16/16 Parainfluenza Virus Type 3 (PCR) - Final, Complete Not Detected 12/16/16 Parainfluenza Virus Type 4 (NAAT) - Final, Complete Not Detected 12/16/16 Respiratory Syncytial Virus (PCR)OR - Final, Complete Not Detected 12/16/16 Chlamydia pneumoniae (PCR) - Final, Complete Not Detected 12/16/16 Mycoplasma pneumoniae DNA Detection - Final, Complete 12/15/16 Streptococcus pneumoniae Ag Screen - Final, Complete Result Diagram: 12/16/16 0310 12/16/16 0310 X-Rays, CTs and MRIs X-RAY CHEST ONE VIEW, PORTABLE IMPRESSION: New mild pneumonia left lower lobe. Dictated and approved by: Jason Moore M.D. on 12/15/2016 at 17:24 CT ABDOMEN AND PELVIS IMPRESSION: 1. 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 2. No suspicious bowel wall mucosal thickening, pneumatosis, or free abdominal fluid. Given the patency of the mesenteric vessels and the lack of suspicious bowel wall findings, mesenteric ischemia is likely not the etiology of the patient's abdominal pain. 3. Superior endplate depression at L1, the acuity of which is unknown. 4. Small bilateral low density pleural effusions and compressive atelectasis. 5. Small hypervascular hepatic focus which may represent a hepatic hemangioma but is incompletely characterized. Nonemergent multiphase hepatic protocol CT may be helpful to further characterize this finding if clinically indicated. Dictated by: Simran Meza M.D. on 12/16/2016 at 15:09 Approved by: Simran Meza M.D. on 12/16/2016 at 15:09 12-lead ECG Sinus rhythm, rate 81, QTC 459, inverted T waves in lateral leads 4, 5, and 6 . Cardiac Echo Impressions Echocardiogram ordered and pending . Additional Diagnostics ECHOCARDIOGRAM 12/16/16 Interpretation Summary Left ventricular ejection fraction is estimated to be 30%. The apical 2/3 is hypokinetic. The basal segments are hypercontractile. Lateral wall hypokinesis. Consider takasubo's.repeat echo in 2 days The left atrium is severely dilated. There is mild mitral regurgitation. The right ventricular systolic pressure is estimated at 49 mmHg assuming a right atrial pressure of 15 mm Hg. The IVC is dilated (diameter is greater than 2.1 cm) and it collapses less than 50% with a sniff. This suggests a high right atrial pressure of 15 mm Hg. Electronically signed by: Khurram Singh on Reading Physician:12/16/2016 10:34 AM Assessment & Plan Mrs. Whitney Delgado is a pleasant 89-year-old lady with past medical history significant for achalasia and uterine cancer who presented to the [facility] Emergency Department complaining of 2 days of epigastric pain. She was admitted for further evaluation of likely non-ST elevation myocardial infarction, epigastric pain, and elevated lactic acid level. Hospital Day 1. 1. Non-ST elevation myocardial infarction, present on admission. Ongoing. - Continue aspirin, morphine, nitroglycerin, and heparin initiated in the Emergency Department - Trend troponin 0.731, 0.746 12/16/16, - Continue telemetry - Echocardiogram Left ventricular ejection fraction is estimated to be 30%. The apical 2/3 is hypokinetic. Consider takasubo's.repeat echo in 2 days - Start Metoprolol 25 mg mg BID - Start Clopidogrel 75 mg QD - Cardiology Following, we appreciate their time and expertise on this case 2. Epigastric pain, present on admission. Ongoing. - Pain with nausea ongoing despite treatment with morphine and ondansetron - Patient denied any recent illness, but should maintain low threshold for further evaluation of acute infection, peptic ulcer disease, gastritis, perforation, ischemia, other - Lipase 14 - Procalcitonin 2.43 12/16/16 - Abdominal CTA negative for mesenteric ischemia - Protonix 40 mg QD IV push - Continue analgesia and antiemetic as needed - Patient currently nothing by mouth, Advance diet as tolerated - Continue maintenance fluids NS @ 100 mls/hr - Senna 17.2 mg BID 3. Elevated lactic acid, present on admission. Ongoing. - Continue serial measurements until resolved, 1.5 12/16/16 - Concern for ongoing ischemia, cardiac or other - Consider further infectious workup, if persistent PRN: Acetaminophen as needed for mild pain/fever/headache PRN Pain management: Opioid analgesia as needed GI prophylaxis: Antiemetic as needed, PPI, Bowel regimen scheduled High risk medications: Morphine 0.5 mg IV PRN pain, Heparin Drip per Cardiac protocol Patient status: Patient is admitted under inpatient status with expected length of stay greater than 2 minutes due to severity of presenting symptoms, complexity of treatment plan, and risk of adverse event.. . GI Prophylaxis: Not indicated VTE Prophylaxis: Other (Heparin drip) VTE Mechanical Devices: Intermittant Pneumatic CD Resuscitation Status: DNR/DNI:Do Not Resuscitate/Intubate (Patient and son stated that patient would prefer to " naturally" and would not want extraordinary measures taken for resuscitation.) Attending Statement The patient was seen and examined together with Dr. Villanueva on 12-16-16 and I agree with the history, exam and plan as outlined in the note above. LEXA VILLANUEVA DO Dec 16, 2016 06:59 Wolf Morgan MD Dec 17, 2016 14:18 VTE Prophylaxis: Other (Heparin drip) VTE Mechanical Devices: Intermittant Pneumatic CD Resuscitation Status: DNR/DNI:Do Not Resuscitate/Intubate (Patient and son stated that patient would prefer to " naturally" and would not want extraordinary measures taken for resuscitation.) LEXA VILLANUEVA DO Dec 16, 2016 06:59
[2016-12-16] MEDS ORDERED: Heparin 5,000 Unit/mL Inj ONE (17:19)
[2016-12-17] MEDS: Sodium Chloride LOK Flush 10 mL Syringe IVFLUSH SCH ×2 (00:30→07:55)
[2016-12-17] MEDS: 0.9% Sodium Chloride 1,000 ML IV SCH ×3 (03:25→12:40)
[2016-12-17 03:29] VITALS: BP 130/73; PULSE 64
[2016-12-17 05:13] LABS: BASOPHILS % (AUTO) 0 % (0-3); EOSINOPHILS % (AUTO) 0 % (0-5); MONOCYTES % (AUTO) 7.1 % (4-12); Mean Corpuscular Hemoglobin 29.8 pg (27.0-35.0); Mean Corpuscular Volume 91.4 fL (81-100); NEUTROPHILS % (AUTO) 85.7 % (40-74); Platelet Count 97 bil/L (150-400)
[2016-12-17] MEDS: Ondansetron 2 mg/mL 2 mL Inj IVPUSH PRN ×4 (07:15→17:44)
[2016-12-17] MEDS ORDERED: Pantoprazole 4 mg/mL 10 mL Inj IVPUSH SCH (07:30)
[2016-12-17 07:46] VITALS: BP 113/65; PULSE 86; RESP 24; O2SAT 89
--- NOTE | 2016-12-17 10:20 | PROG NOTE ---
[address] [address] PROGRESS NOTE PATIENT: RAFFY BASURTO : 1925 MR#: [id number] ADMIT: 12/15/2016 JOB ID: [id number] CARDIOLOGY PROGRESS NOTE - FOLLOW-UP INPATIENT CONSULTATION: DATE: Saturday, December 17, 2016 CONSULTING PHYSICIAN: Cardiology--George Rees MD PROBLEMS: 1. Acute coronary syndrome (ACS): a. Abnormal ECG with lateral T-wave inversion noted on admission; and elevated troponin. b. Abdominal Pain--Consider ischemic equivalent (doubtful). 2. Nausea and abdominal pain. a. Presenting complaint--etiology not yet definitive. SUBJECTIVE: Hospital day three. I met this 89-year-old woman on Cardiology rounds this morning. She was seen for Cardiology consultation yesterday because of the apparent clinical diagnosis of NSTEMI. I reviewed her hospital chart. The overall clinical scenario is atypical, and not entirely clear at this point, either regarding her cardiac status, or her abdominal status. Nausea and abdominal pain: She continues to have constant but waxing and waning abdominal pain that can be at least moderately severe. She has had ongoing nausea. She is trying to drink this morning. I understand the work-up so far includes lipase and abdominal CT that are not revealing. This is a new problem for her. It started about four days ago. She has a history of uterine cancer, but she tells me this is remote; and has not been active since surgery many years ago. She has achalasia, but this is not similar to the swallowing troubles she had that were in the distant past. ACS; NSTEMI: She does not have a prior history of heart disease, and I do not elicit recent symptoms of heart disease. Her abdominal symptoms currently would seem to be highly atypical for ongoing coronary ischemia, especially in the absence of emerging objective signs of progressive ischemic problems. Regarding her NSTEMI, I noted the total CK was not significantly elevated. Her EKG was definitely abnormal, suggestive of lateral ischemia. Overall, she remains stable in terms of her cardiac status while on medical therapy for ACS including heparin, aspirin and beta-niesha, and Plavix which was initiated yesterday. OBJECTIVE: EXAMINATION: Vital signs stable and afebrile. Note she is very frail. Weight 43-46 kg. Lung and heart exam unremarkable. She may have a soft apical S3 that would be consistent with the findings on the echo. No loud murmur. Abdomen: Her abdominal examination is overall only modestly remarkable given her symptoms. There is, at best, only mild diffuse tenderness on palpation. No masses. No bruit of abdominal aortic aneurysm. Extremities: No edema DIAGNOSTIC STUDIES: Electrocardiogram: Today's ECG actually appears improved, with resolution of the prior deep lateral T-wave inversions in V5 and V6 (consider dynamic changes vs. serial changes). Note prior inferior Q-waves. Echocardiogram: I reviewed the echo images. As reported the Echo really is suggestive of stress cardiomyopathy with vigorous basal wall motion; but akinetic, and nearly ballooning appearance of the apex. Overall EF is low-- about 30%. ASSESSMENT: Acute coronary syndrome (ACS) with Non-ST segment myocardial infarction: I discussed my findings with her(no family present) and with the Hospitalist Service including: It is doubtful that her presentation with abdominal complaints represents ongoing coronary ischemia; but this has been considered. Her evident cardiac injury, including probable underlying coronary disease ( versus stress cardiomyopathy) may be secondary to physiologic stress from abdominal problem. I understand that a decision has been made for medical therapy, especially given her comorbidity, her advanced age, and extreme frailty. This is reasonable, unless she develops more acute problems during ongoing monitoring. RECOMMENDATIONS: 1. Your plan to define her abdominal problem. I wonder if GI consultation can add. I considered mesenteric ischemia; but the overall scenario is not typical. 2. Heparin--Plan for 48 hours, but as we discussed, her hemoglobin has dropped from 13.9-9.7 (consider also dilutional since she has been rehydrated here in the hospital). Heparin can be stopped if there is concern about bleeding. 3. Thrombocytopenia--also may be heparin related; and an indication to stop heparin. Per your evaluation and management. 4. OMT--Continue guideline directed optimal medical therapy including aspirin, statin, beta niesha, and THOMAS inhibitor as tolerated. 5. Add statin. 6. Follow-up echocardiogram--If stress cardiomyopathy there is substantial hope for improvement, and a more favorable prognosis--long-term follow-up for possible underlying coronary disease might include stress perfusion scan. LAWRENCE
[2016-12-17 12:19] VITALS: BP 118/72; PULSE 79; RESP 20; O2SAT 93
[2016-12-17 14:44] LABS: BASOPHILS % (AUTO) 0.1 % (0-3); EOSINOPHILS % (AUTO) 0 % (0-5); MONOCYTES % (AUTO) 7.2 % (4-12); Mean Corpuscular Hemoglobin 29.8 pg (27.0-35.0); Mean Corpuscular Volume 90.3 fL (81-100); NEUTROPHILS % (AUTO) 87.5 % (40-74); Platelet Count 115 bil/L (150-400)
[2016-12-17 15:10] LABS: Bilirubin, Direct 0.2 mg/dL (0.0-0.3)
[2016-12-17] MEDS: Pantoprazole 4 mg/mL 10 mL Inj IVPUSH SCH (16:30)
[2016-12-17 16:51] VITALS: PULSE 80
[2016-12-17 17:10] VITALS: BP 114/68; PULSE 82; RESP 20; O2SAT 94
--- NOTE | 2016-12-17 17:58 | NUR ---
Resp/nausea During AM assessment it was noted that pt SAO2 was 88-89% on 2L NC. Pts O2 was increased to 3%. When pt was assessed by PT, pt's SaO2 on 3L NC had not improved but remained 88-89%. Pt was placed on 6L NC and improved to 90%. Pt was ambulated down hallway by PT and experienced SOB with generalized weakness and lightheadedness. Pt was placed in wheelchair and transported back to her room. Pt was helped back to bed and O2 remained at 6L NC. Pt symptoms resolved with rest. At 1200 assessment pt's SaO2 had improved to 94% on 6L NC. MD was made aware. GI/: Patient abdominal pain decreased today. Passed stool in [employer]. She continued to complain of nausea and was administered PRN 8mg IV q4 of Zofran with relief q4.
--- NOTE | 2016-12-17 18:17 | NUR ---
Transfer to [facility] Pt transferred to [facility] room 240/1. Pt's belongings were gathered and transported with pt. Report was given to Gege TAYLOR. Pt's son is currently a patient in the hospital, his nurse was informed of pt's transfer.
--- NOTE | 2016-12-17 18:18 | PCM.PNMED ---
Subjective Date of Service Dec 17, 2016 Subjective Mrs. Whitney Delgado is a pleasant 89-year-old lady with past medical history significant for achalasia and uterine cancer who admitted for treatment of of epigastric pain. Patient otherwise denied any fever, chills, cough or sputum production. Hospital day 2 Overnight: Patient slept well and awoke several time to have a BM. Today: Patient reports that she continues to nausea and abdominal pain. Patient stated that she has had several bowel movements last night and once large BM this morning which she described as "it could shake the building." Patient stated that post BM this morning abdominal pain subsided, but pain returned a few hours later. ROS negative except at mentioned above. Exam Vital Signs Vital Sign - Last Date Time Temp Pulse Resp B/P Pulse Ox O2 Delivery O2 Flow Rate FiO2 12/17/16 04:30 Supplement Oxygen 12/17/16 03:29 37.1 64 130/73 2.50 94 12/16/16 23:40 18 93 Intake and Output 12/16/16 12/16/16 12/17/16 Cumulative From/Thru 15:00 23:00 07:00 12/15/16 12:46 - 12/17/16 06:06 Intake Total 1399 ml 1060 ml 4326 ml Output Total 100 ml 350 ml 600 ml Balance 1299 ml 710 ml 3726 ml Intake Oral 100 ml 100 ml 500 ml IV Total 1299 ml 960 ml 3826 ml Output Urine Total 100 ml 350 ml 600 ml Exam General: No acute distress, well-developed, malnourished, limited interaction due to medical condition HEENT: Normocephalic, atraumatic. External ears without defect. Pupils equal, round, and reactive to light and accommodation. Anicteric sclerae, moist conjunctivae, and no lid lag. Oropharynx free of erythema and cobble stoning with somewhat dry mucosa. Edentulous. Hard of hearing with hearing aids. Neck: Supple with full range of motion. No jugular venous distension. No bruits. No lymphadenopathy or thyromegaly. Cardiovascular: Regular rate and rhythm with no murmurs, rubs, or gallops appreciated Pulmonary: Clear to auscultation bilaterally with no crackles, wheezes, or rhonchi. Normal respiratory effort with no use of accessory muscles. Abdomen: Bowel tones present. Slightly firm, moderately tender epigastrium, nondistended. No hepatosplenomegaly or masses appreciated. Extremities: No clubbing, cyanosis, edema, or lymphadenopathy appreciated. Skin: Normal temperature, turgor, and texture; no rash, ulcers, or subcutaneous nodules appreciated. Neurological: Cranial nerves grossly intact. Diminished muscle strength, tone, and bulk. No known gait impairment. Psychiatric: Difficult to assess due to acute medical condition. Alert and oriented to person, place, and time. Lab and Diagnostics Result Diagram: 12/17/16 0456 12/17/16 0456 X-Rays, CTs and MRIs X-RAY CHEST ONE VIEW, PORTABLE IMPRESSION: New mild pneumonia left lower lobe. Dictated and approved by: Jason Moore M.D. on 12/15/2016 at 17:24 CT ABDOMEN AND PELVIS IMPRESSION: 1. 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 2. No suspicious bowel wall mucosal thickening, pneumatosis, or free abdominal fluid. Given the patency of the mesenteric vessels and the lack of suspicious bowel wall findings, mesenteric ischemia is likely not the etiology of the patient's abdominal pain. 3. Superior endplate depression at L1, the acuity of which is unknown. 4. Small bilateral low density pleural effusions and compressive atelectasis. 5. Small hypervascular hepatic focus which may represent a hepatic hemangioma but is incompletely characterized. Nonemergent multiphase hepatic protocol CT may be helpful to further characterize this finding if clinically indicated. Dictated by: Simran Meza M.D. on 12/16/2016 at 15:09 Approved by: Simran Meza M.D. on 12/16/2016 at 15:09 12-lead ECG Sinus rhythm, rate 81, QTC 459, inverted T waves in lateral leads 4, 5, and 6 . Cardiac Echo Impressions Echocardiogram ordered and pending . Additional Diagnostics ECHOCARDIOGRAM 12/16/16 Interpretation Summary Left ventricular ejection fraction is estimated to be 30%. The apical 2/3 is hypokinetic. The basal segments are hypercontractile. Lateral wall hypokinesis. Consider takasubo's.repeat echo in 2 days The left atrium is severely dilated. There is mild mitral regurgitation. The right ventricular systolic pressure is estimated at 49 mmHg assuming a right atrial pressure of 15 mm Hg. The IVC is dilated (diameter is greater than 2.1 cm) and it collapses less than 50% with a sniff. This suggests a high right atrial pressure of 15 mm Hg. Electronically signed by: Khurram Singh on Reading Physician:12/16/2016 10:34 AM Assessment & Plan Mrs. Whitney Delgado is a pleasant 89-year-old lady with past medical history significant for achalasia and uterine cancer who presented to the [facility] Emergency Department complaining of 2 days of epigastric pain. She was admitted for further evaluation of likely non-ST elevation myocardial infarction, epigastric pain, and elevated lactic acid level. 1. Non-ST elevation myocardial infarction, present on admission. Ongoing. - Continue aspirin, morphine, nitroglycerin, and heparin initiated in the Emergency Department - Trend troponin 0.731, 0.746 12/16/16, Repeat Troponin in AM - Continue telemetry - Echocardiogram Left ventricular ejection fraction is estimated to be 30%. The apical 2/3 is hypokinetic. Consider takasubo's.repeat echo in 2 days - Continue Metoprolol 25 mg mg BID - Continue Clopidogrel 75 mg QD - Cardiology Following, we appreciate their time and expertise on this case 2. Epigastric pain, present on admission. Improving. - Pain with nausea ongoing despite treatment with morphine and ondansetron - Patient denied any recent illness, but should maintain low threshold for further evaluation of acute infection, peptic ulcer disease, gastritis, perforation, ischemia, other - Lipase 14 - Procalcitonin 4.23 12/16/16, 12/17/16 3.98 - Abdominal CTA negative for mesenteric ischemia, large amounts of stool present - Protonix 40 mg QD IV push - Continue analgesia and antiemetic as needed - Patient currently nothing by mouth, Advance diet as tolerated - Continue maintenance fluids NS @ 100 mls/hr, - Continue Senna 17.2 mg BID - Consider GI consult in AM if symptoms do not improve. 3. Elevated lactic acid, present on admission. Resolved. - Continue serial measurements until resolved, 2.8 12/15/16, 1.5 12/16/16, - Concern for ongoing ischemia, cardiac or other - Consider further infectious workup, if persistent PRN: Acetaminophen as needed for mild pain/fever/headache PRN Pain management: Opioid analgesia as needed GI prophylaxis: Antiemetic as needed, PPI, Bowel regimen scheduled High risk medications: Morphine 0.5 mg IV PRN pain, Heparin Drip per Cardiac protocol Disposition: Likely discharge to home with improvement of symptoms in the next two days. GI Prophylaxis: Not indicated VTE Prophylaxis: Other (Heparin drip) VTE Mechanical Devices: Intermittant Pneumatic CD Resuscitation Status: DNR/DNI:Do Not Resuscitate/Intubate (Patient and son stated that patient would prefer to " naturally" and would not want extraordinary measures taken for resuscitation.) Attending Statement The patient was seen and examined together with Dr. Villanueva on 12-17-16 and I agree with the history, exam and plan as outlined in the note above. LEXA VILLANUEVA DO Dec 17, 2016 06:53 Wolf Morgan MD Dec 18, 2016 13:01
--- NOTE | 2016-12-17 18:30 | NUR ---
report/transfer Received report from [facility] Upon arrival pt on 6 liters of O2 sats 94%. Dinner in front of her. Alert and orientated.
[2016-12-17 20:35] VITALS: BP 121/69; PULSE 82; RESP 20; O2SAT 93
[2016-12-18] VITALS (8 sets, daily range): BP systolic 100–119; BP diastolic 63–73; PULSE 62–88; RESP 18–20; O2SAT 91–96
[2016-12-18] MEDS: 0.9% Sodium Chloride 1,000 ML IV SCH ×5 (02:14→19:25)
[2016-12-18] MEDS: Sodium Chloride LOK Flush 10 mL Syringe IVFLUSH SCH ×4 (02:15→16:30)
--- NOTE | 2016-12-18 05:35 | NUR ---
O2 saturation pt was on 6L oxygen. during VS check at 2029 titrated her O2 to 5L with SPO2 94-95%. Titrated again to 4L. Pt maintained SPO2 92-94% during this shift. Denies nausea and any kind of pain. Bed is locked and in low position. call light within reach. will continue to monitor.
[2016-12-18] MEDS ORDERED: Pantoprazole 40 mg ER24 Tablet PO SCH (06:30)
[2016-12-18 07:10] LABS: BASOPHILS % (AUTO) 0.1 % (0-3); EOSINOPHILS % (AUTO) 0.1 % (0-5); MONOCYTES % (AUTO) 11.1 % (4-12); Mean Corpuscular Volume 90.5 fL (81-100); NEUTROPHILS % (AUTO) 78.3 % (40-74); Platelet Count 100 bil/L (150-400)
[2016-12-18] MEDS ORDERED: levoFLOXacin 750 mg Tablet PO SCH (07:30)
[2016-12-18 07:53] LABS: TROPONIN T 0.403 ug/L (0.0-0.011)
[2016-12-18] MEDS: levoFLOXacin 500 mg Tablet PO SCH (08:54)
[2016-12-18] MEDS: Pantoprazole 4 mg/mL 10 mL Inj IVPUSH SCH ×2 (08:56→16:57)
--- NOTE | 2016-12-18 12:39 | NUR ---
Social Work: Continued d/c planning Data: Pt is on day 3 of hospitalization. EMR reviewed. PT recommending SNF at this time, pt walking only 50 ft. WOUND CARE CENTER CONSULTANT met with pt at bedside who states her preference for SNF are [facility] or [facility]. WOUND CARE CENTER CONSULTANT requested UR specialist to refer pt to these locations. WOUND CARE CENTER CONSULTANT will continue to follow. Plan: Pt will d/c to SNF, [facility] and [facility] being referred to, when medically stable. WOUND CARE CENTER CONSULTANT will continue to follow. BOBBI Mock
--- NOTE | 2016-12-18 13:48 | NUR ---
faxed facesheet and gave access to [facility] and [facility].
--- NOTE | 2016-12-18 15:03 | NUR ---
Resp/DC planning/son/trop On rounds with MD this morning requested to keep sats above 91%. Currently on 4 liters, occas removes and sats 75-82%. Assisted pt to call son who is a patient in the hospital. Per PT, recommends SNF. SW assisting this process. troponin trending down 0.403.
--- NOTE | 2016-12-18 15:18 | DRSVH ---
[facility] [address] [place] [address] Echocardiogram Report Name: RAFFY BASURTO LStudy Date: 12/18/2016 Hospital Exam Location: [facility] Gender: Female : 1925 Age: 89 yrs BP: 118/67 mmHg Reason For Study: TAKUTSUBO'S Ordering Physician: Performed By: Isaias Topete Interpretation Summary The left ventricle is normal in size. The ejection fraction is estimated to be 35%. There has been a slight improvement since the previous exam. Mostly the distal 1/3 is still severely hypokinetic to akinetic. There is a slight improvement along the mid LV segments. Procedure: A two-dimensional transthoracic echocardiogram with color flow and Doppler was performed in limited views only. The study quality was technically good. Comparison is made with the echocardiogram of 12/16/16. The patient was in normal sinus rhythm during the exam. Left Ventricle: The left ventricle is normal in size. There is normal left ventricular wall thickness. Left ventricular ejection fraction is estimated to be 35%. Compared to the prior exam, left ventricular function is borderline improved. Mostly the distal 1/3 is severely hypokinetic to akinetic. There is a slight improvement along the mid LV segments. Mitral Valve: The mitral valve leaflets are mildly calcified. There is mild mitral regurgitation. Tricuspid Valve: There is mild to moderate tricuspid regurgitation. Right ventricular systolic pressure is estimated to be 38 mmHg plus the clinically estimated CVP which cannot be estimated on this exam. Pericardium/ Pleura There is a moderately large left-sided pleural effusion. Doppler Measurements & Calculations MV E max sanjay MV E/A TR max sanjay MV V2 mean : 119.4 cm/sec : 0.90 : 306.1 cm/sec : 94.3 cm/sec MV A max sanjay TR max P.5 mmHg MV mean P.8 mmHg : 132.3 cm/sec MV V2 VTI: 37.8 cm MV dec time : 0.21 sec Reading Physician:TYRON
--- NOTE | 2016-12-18 19:33 | PCM.PNMED ---
Subjective Date of Service Dec 18, 2016 Subjective Patient was seen and examined at bedside today. Patient states that she currently has no pain, chest pain, shortness of breath, nausea, vomiting, diarrhea. Exam Vital Signs Vital Sign - Last Date Time Temp Pulse Resp B/P Pulse Ox O2 Delivery O2 Flow Rate FiO2 12/18/16 16:32 37.1 80 20 115/73 96 Nasal Cannula 4.00 12/17/16 03:29 94 Intake and Output 12/17/16 12/17/16 12/18/16 Cumulative From/Thru 15:00 23:00 07:00 12/15/16 12:46 - 12/18/16 06:07 Intake Total 111 ml 1415 ml 5852 ml Output Total 375 ml 975 ml Balance 111 ml 1040 ml 4877 ml Intake Oral 50 ml 550 ml IV Total 111 ml 1365 ml 5302 ml Output Urine Total 375 ml 975 ml # Bowel Movements 0 0 Exam Physical Exam: GEN: Patient was awake, alert, responding appropriately to questions HEENT: PERRLA, EOMI, Neck soft supple, trachea midline, nomocephalic/atraumatic CV: +S1/S2, +S3, regular rate Respiratory: CTAB, no wheezes, rales, rhonchi GI: +bowel sounds x4, soft, compressible, non TTP EXT: no c/c/e Neuro: CN II-XII grossly intact Psych: mood and affect were appropriate IVs and Medications Medications Current Medications Pantoprazole 40 mg DAILYAC IVPUSH Last administered on 12/17/16 07:54; Admin Dose 40 MG; Start 12/17/16 at 07:30; Stop 12/17/16 at 09:39; Status DC Senna 17.2 mg BID PO Last administered on 12/18/16 08:54; Admin Dose 17.2 MG; Start 12/16/16 at 20:30 Levofloxacin 750 mg DAILYAC PO; Start 12/18/16 at 07:30; Stop 12/18/16 at 07:30 ; Status DC Levofloxacin 500 mg DAILYAC PO Last administered on 12/18/16 08:54; Admin Dose 500 MG; Start 12/18/16 at 07:30 Pantoprazole 40 mg 0630 PO; Start 12/18/16 at 06:30; Stop 12/18/16 at 06:30; Status DC Pantoprazole 40 mg BIDAC IVPUSH Last administered on 12/18/16t 16:57; Admin Dose 40 MG; Start 12/17/16 at 16:30 Lab and Diagnostics Laboratory Tests Test 12/18/16 06:50 12/18/16 17:10 White Blood Count 6.7th/mm3 (3.8-10.1) Red Blood Count 3.27mil/mm3 (3.90-5.20) Hemoglobin 9.8g/dL (12.0-15.6) Hematocrit 29.6% (35.0-46.0) Mean Corpuscular Volume 90.5fL (81-100) Mean Corpuscular Hemoglobin 30.0pg (27.0-35.0) Mean Corpuscular Hemoglobin Concent 33.1% (32.0-37.0) Red Cell Distribution Width 14.1% (12.3-15.4) Platelet Count 100bil/L (150-400) Neutrophils (%) (Auto) 78.3% (40-74) Lymphocytes (%) (Auto) 10.3% (14-46) Monocytes (%) (Auto) 11.1% (4-12) Eosinophils (%) (Auto) 0.1% (0-5) Basophils (%) (Auto) 0.1% (0-3) Sodium Level 134mEq/L (134-144) Potassium Level 4.4mEq/L (3.5-5.2) Chloride Level 103mEq/L (97-108) Carbon Dioxide Level 21mmol/L (18-29) Blood Urea Nitrogen 20mg/dL (8-27) Creatinine 0.91mg/dL (0.57-1.00) Estimat Glomerular Filtration Rate 83mL/min (>59) Glucose Level 84mg/dL (60-99) Lactic Acid Level 0.9mmol/L (0.4-2.0) Calcium Level 8.0mg/dL (8.5-10.1) Troponin T 0.403ug/L (0.0-0.011) 0.371ug/L (0.0-0.011) Microbiology 12/16/16 Adenovirus DNA (PCR) - Final, Complete Not Detected 12/16/16 Coronavirus 229E PCR - Final, Complete Not Detected 12/16/16 Coronavirus HKU1 PCR - Final, Complete Not Detected 12/16/16 Coronavirus NL63 PCR - Final, Complete Not Detected 12/16/16 Coronavirus OC43 PCR - Final, Complete Not Detected 12/16/16 Influenza Type A (PCR) - Final, Complete Not Detected 12/16/16 Influenza Type B (PCR) - Final, Complete Not Detected 12/16/16 Human Metapneumovirus (PCR) (BEL) - Final, Complete Not Detected 12/16/16 Rhinovirus (PCR)(BEL) - Final, Complete Not Detected 12/16/16 Parainfluenza Virus Type 1 (PCR) - Final, Complete Not Detected 12/16/16 Parainfluenza Virus Type 2 (PCR) - Final, Complete Not Detected 12/16/16 Parainfluenza Virus Type 3 (PCR) - Final, Complete Not Detected 12/16/16 Parainfluenza Virus Type 4 (NAAT) - Final, Complete Not Detected 12/16/16 Respiratory Syncytial Virus (PCR)NH - Final, Complete Not Detected 12/16/16 Chlamydia pneumoniae (PCR) - Final, Complete Not Detected 12/16/16 Mycoplasma pneumoniae DNA Detection - Final, Complete 12/15/16 Streptococcus pneumoniae Ag Screen - Final, Complete Result Diagram: 12/18/16 0650 12/18/16 0650 X-Rays, CTs and MRIs X-RAY CHEST ONE VIEW, PORTABLE IMPRESSION: New mild pneumonia left lower lobe. Dictated and approved by: Jason Moore M.D. on 12/15/2016 at 17:24 CT ABDOMEN AND PELVIS IMPRESSION: 1. 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 2. No suspicious bowel wall mucosal thickening, pneumatosis, or free abdominal fluid. Given the patency of the mesenteric vessels and the lack of suspicious bowel wall findings, mesenteric ischemia is likely not the etiology of the patient's abdominal pain. 3. Superior endplate depression at L1, the acuity of which is unknown. 4. Small bilateral low density pleural effusions and compressive atelectasis. 5. Small hypervascular hepatic focus which may represent a hepatic hemangioma but is incompletely characterized. Nonemergent multiphase hepatic protocol CT may be helpful to further characterize this finding if clinically indicated. Dictated by: Simran Meza M.D. on 12/16/2016 at 15:09 Approved by: Simran Meza M.D. on 12/16/2016 at 15:09 12-lead ECG Sinus rhythm, rate 81, QTC 459, inverted T waves in lateral leads 4, 5, and 6 . Cardiac Echo Impressions Echocardiogram ordered and pending . Additional Diagnostics ECHOCARDIOGRAM 12/16/16 Interpretation Summary Left ventricular ejection fraction is estimated to be 30%. The apical 2/3 is hypokinetic. The basal segments are hypercontractile. Lateral wall hypokinesis. Consider takasubo's.repeat echo in 2 days The left atrium is severely dilated. There is mild mitral regurgitation. The right ventricular systolic pressure is estimated at 49 mmHg assuming a right atrial pressure of 15 mm Hg. The IVC is dilated (diameter is greater than 2.1 cm) and it collapses less than 50% with a sniff. This suggests a high right atrial pressure of 15 mm Hg. Electronically signed by: Khurram Singh on Reading Physician:12/16/2016 10:34 AM Assessment & Plan Mrs. Whitney Delgado is a pleasant 89-year-old lady with past medical history significant for achalasia and uterine cancer who presented to the [facility] Emergency Department complaining of 2 days of epigastric pain. She was admitted for further evaluation of likely non-ST elevation myocardial infarction, epigastric pain, and elevated lactic acid level. 1. Non-ST elevation myocardial infarction, present on admission. Ongoing. - Continue aspirin, morphine, nitroglycerin, and heparin initiated - Troponins trending down 0.746 --> 0.403 --> 0.371 - Continue telemetry - Repeat echo tomorrow - Continue Metoprolol 25 mg mg BID - Continue Clopidogrel 75 mg QD - Cardiology Following, we appreciate their time and expertise on this case 2. Epigastric pain, present on admission. Improved. - Continue Protonix 40 mg QD IV push - Continue analgesia and antiemetic as needed - Patient currently nothing by mouth, Advance diet as tolerated - Continue maintenance fluids NS @ 80 mls/hr, - Continue Senna 17.2 mg BID -We will consider GI consult if pain returns 3. Elevated lactic acid, present on admission. Resolved. - Continue serial measurements until resolved, 2.8 12/15/16, 1.5 12/16/16, 1.3 , 0.9 12/18/16 - Concern for ongoing ischemia, cardiac or other PRN: Acetaminophen as needed for mild pain/fever/headache PRN Pain management: Opioid analgesia as needed GI prophylaxis: Antiemetic as needed, PPI, Bowel regimen scheduled High risk medications: Morphine 0.5 mg IV PRN pain, Heparin Drip per Cardiac protocol Disposition: Patient is currently doing well and troponins are trending down. Patient may be a candidate for home tomorrow. We will reassess in the morning. GI Prophylaxis: Not indicated VTE Prophylaxis: Other (Heparin drip) VTE Mechanical Devices: Intermittant Pneumatic CD Resuscitation Status: DNR/DNI:Do Not Resuscitate/Intubate (Patient and son stated that patient would prefer to " naturally" and would not want extraordinary measures taken for resuscitation.) Maribell Law DO Dec 18, 2016 19:33
[2016-12-19 00:41] VITALS: BP 99/53; PULSE 75; RESP 15; O2SAT 93
[2016-12-19] MEDS: Sodium Chloride LOK Flush 10 mL Syringe IVFLUSH SCH ×2 (00:48→08:30)
[2016-12-19] MEDS: 0.9% Sodium Chloride 1,000 ML IV SCH ×2 (00:48→05:25)
[2016-12-19 04:32] VITALS: BP 124/66; PULSE 75; RESP 16; O2SAT 94
[2016-12-19 05:21] VITALS: PULSE 76
--- NOTE | 2016-12-19 05:37 | NUR ---
O2 saturation/Trop. pt was on 2L oxygen with SPO2 88-90%. Increased her O2 to 3L, and sat goes up to 91-94%. Denies nausea and any kind of pain. Troponin trending down to 0.3. Bed is locked and in low position. call light within reach. will continue to monitor.
[2016-12-19 06:30] LABS: Mean Corpuscular Hemoglobin 29.5 pg (27.0-35.0); Mean Corpuscular Volume 90.8 fL (81-100)
[2016-12-19 07:01] LABS: TROPONIN T 0.3 ug/L (0.0-0.011)
[2016-12-19 08:00] VITALS: PULSE 83
[2016-12-19 08:26] VITALS: BP 109/55; PULSE 85; RESP 15; O2SAT 90
[2016-12-19] MEDS: Pantoprazole 4 mg/mL 10 mL Inj IVPUSH SCH (08:29)
[2016-12-19] MEDS: levoFLOXacin 500 mg Tablet PO SCH (08:31)
[2016-12-19 08:40] VITALS: BP 109/55; PULSE 85; RESP 15; O2SAT 90
--- NOTE | 2016-12-19 08:47 | NUR ---
Called and left message for [facility] to see if they could accept patient. Updated PRECISION AIRCRAFT SYSTEMS ASSEMBLER Addendum: 12/19/16 at 1304 by WARREN ROJAS CM [facility] can accept with [facility] to follow
--- NOTE | 2016-12-19 13:11 | PCM.DIMED ---
Discharge Instructions Date of Service Dec 19, 2016 Dates of Hospitalization Dec 15, 2016 at 17:18 Discharge Diagnosis Discharge Diagnosis N STEMI with troponins trending down Lactic acidosis resolved Weakness/deconditioning Diet No restrictions Activity Other (gradually increase activity as tolerated) Call your provider Fever or Chills, Shortness of breath, Chest pain, Weakness (unilateral) Patient Instructions Follow-up Provider: Jules Mei DO Follow-up with PCP in: 1 week Maribell Law DO Dec 19, 2016 13:11
[2016-12-19] MEDS ORDERED: LEVO500T16 PO (13:16)
[2016-12-19] MEDS ORDERED: ASPI81TA3 PO (13:16)
[2016-12-19] MEDS ORDERED: Acetaminophen PO (13:16)
[2016-12-19] MEDS ORDERED: METO25TA6 PO (13:16)
--- NOTE | 2016-12-19 13:21 | NUR ---
Social Work: Discharge D: Pt discussed in am rounds. Pt is medically stable for discharge. Pt has been accepted at [facility] iw Dr. Mei to follow. Pt's first choice, [facility], does not have a bed available. CORPORATE BOND TRADER met with pt at bedside to review discharge plan. Pt agrees with plan as long as her son agrees. CORPORATE BOND TRADER spoke with pt's son Robert to notify of discharge and disposition. He agrees with plan for skilled rehab at [facility] and will meet her over there later today. MD has completed orders. PPW and PASSR completed. MUNITIONS WORKER to arrange for transportation for pt to [facility]. A: Pt who will require skilled rehab P: Pt to discharge to [facility] today with Dr. Mei to follow; MUNITIONS WORKER to arrange for transport time and to update bedside RN. BOBBI Landin
--- NOTE | 2016-12-19 13:33 | PCM.DC.MED ---
Discharge Summary Date of Service Dec 19, 2016 Dates of Hospitalization Date of Hospital Admission Dec 15, 2016 at 17:18 Date of Discharge: Dec 19, 2016 Providers: Admitting Physician: Khang Hernandez MD Primary Care Physician: Atilio Henry MD Attending Physician: Khang Hernandez MD Diagnosis at Time of Discharge Diagnosis at Time of Discharge N STEMI with troponins trending down Lactic acidosis resolved Weakness/deconditioning Procedures XRay, CTs & MRIs X-RAY CHEST ONE VIEW, PORTABLE IMPRESSION: New mild pneumonia left lower lobe. Dictated and approved by: Jason Moore M.D. on 12/15/2016 at 17:24 CT ABDOMEN AND PELVIS IMPRESSION: 1. 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 2. No suspicious bowel wall mucosal thickening, pneumatosis, or free abdominal fluid. Given the patency of the mesenteric vessels and the lack of suspicious bowel wall findings, mesenteric ischemia is likely not the etiology of the patient's abdominal pain. 3. Superior endplate depression at L1, the acuity of which is unknown. 4. Small bilateral low density pleural effusions and compressive atelectasis. 5. Small hypervascular hepatic focus which may represent a hepatic hemangioma but is incompletely characterized. Nonemergent multiphase hepatic protocol CT may be helpful to further characterize this finding if clinically indicated. Dictated by: Simran Meza M.D. on 12/16/2016 at 15:09 Approved by: Simran Meza M.D. on 12/16/2016 at 15:09 ECG 12 Lead Sinus rhythm, rate 81, QTC 459, inverted T waves in lateral leads 4, 5, and 6 . Cardiac Echo Impression Echocardiogram Report Name: WHITNEY BASURTO LStudy Date: 12/16/2016 Height: 65 in Hospital Exam Location: [facility] Weight: 102 lb Gender: Female BSA: 1.5 m2 : 1925 Age: 89 yrs BP: 117/76 mmHg Reason For Study: Chest pain Ordering Physician: HOSPITALIST [facility] Performed By: Isaias Topete Referring Physician: KHANG HERNANDEZ Interpretation Summary Left ventricular ejection fraction is estimated to be 30%. The apical 2/3 is hypokinetic. The basal segments are hypercontractile. Lateral wall hypokinesis. Consider takasubo's.repeat echo in 2 days The left atrium is severely dilated. There is mild mitral regurgitation. The right ventricular systolic pressure is estimated at 49 mmHg assuming a right atrial pressure of 15 mm Hg. The IVC is dilated (diameter is greater than 2.1 cm) and it collapses less than 50% with a sniff. This suggests a high right atrial pressure of 15 mm Hg. . Other Diagnostics ECHOCARDIOGRAM 12/16/16 Interpretation Summary Left ventricular ejection fraction is estimated to be 30%. The apical 2/3 is hypokinetic. The basal segments are hypercontractile. Lateral wall hypokinesis. Consider takasubo's.repeat echo in 2 days The left atrium is severely dilated. There is mild mitral regurgitation. The right ventricular systolic pressure is estimated at 49 mmHg assuming a right atrial pressure of 15 mm Hg. The IVC is dilated (diameter is greater than 2.1 cm) and it collapses less than 50% with a sniff. This suggests a high right atrial pressure of 15 mm Hg. Electronically signed by: Khurram Singh on Reading Physician:12/16/2016 10:34 AM Brief History Mrs. Whitney Basurto is a pleasant 89-year-old lady with past medical history significant for achalasia and uterine cancer who presented to the [facility] Emergency Department complaining of 2 days of epigastric pain. Patient otherwise denied any fever, chills, cough or sputum production. Beyond that, patient was unable to provide much history due to ongoing epigastric pain and nausea. Per the patient's son (who is currently hospitalized for gallstone pancreatitis) , the patient is very independent at baseline. She ambulates without any assistance devices and rides a tricycle as much as 1-1/2 miles daily. She is able to negotiate stairs without difficulty, rarely sees her primary care physician, and is on no prescription medications. It does not seem that she uses [id number] medications often either. The patient was able to tell me that she did not get an influenza vaccine this year and that she would not want one if offered. In the Emergency Department, patient was noted to have EKG changes and elevated troponin consistent with non-ST elevation myocardial infarction and was recommended for admission and further evaluation. . Hospital Course A Mrs. Whitney Basurto is a pleasant 89-year-old lady with past medical history significant for achalasia and uterine cancer who presented to the [facility] Emergency Department complaining of 2 days of epigastric pain. She was admitted for further evaluation of likely non-ST elevation myocardial infarction, epigastric pain, and elevated lactic acid level. 1. Non-ST elevation myocardial infarction, present on admission. Ongoing. - Continue aspirin, morphine, nitroglycerin, and heparin initiated - Troponins trending down 0.746 --> 0.403 --> 0.371 - Continue telemetry - Repeat echo tomorrow - Continue Metoprolol 25 mg mg BID - Continue Clopidogrel 75 mg QD - Cardiology Following, we appreciate their time and expertise on this case 2. Epigastric pain, present on admission. Improved. - Continue Protonix 40 mg QD IV push - Continue analgesia and antiemetic as needed - Patient currently nothing by mouth, Advance diet as tolerated - Continue maintenance fluids NS @ 80 mls/hr, - Continue Senna 17.2 mg BID -We will consider GI consult if pain returns 3. Elevated lactic acid, present on admission. Resolved. - Continue serial measurements until resolved, 2.8 12/15/16, 1.5 12/16/16, 1.3 , 0.9 12/18/16 - Concern for ongoing ischemia, cardiac or other Disposition: Patient is currently doing well and troponins are trending down. Patient has been progressing well however, she now seems deconditioned and has been very fatigued with transfers from bed to chair. The patient's son recently had surgery and is unable to assist the patient with transfers from the bed to the bathroom and it was felt that the patient would benefit from a SNF placement for rehabilitation that she is able to gain her strength returned to her baseline status. Exam Vital Signs (Last) Date Time Temp Pulse Resp B/P Pulse Ox O2 Delivery O2 Flow Rate FiO2 12/19/16 11:28 Nasal Cannula 3.00 12/19/16 08:40 37.1 85 15 109/55 90 12/17/16 03:29 94 Exam Physical Exam: GEN: Patient was awake, alert, responding appropriately to questions HEENT: PERRLA, EOMI, Neck soft supple, trachea midline, nomocephalic/atraumatic CV: +S1/S2, positive systolic murmur, RRR Respiratory: CTAB, no wheezes, rales, rhonchi GI: +bowel sounds x4, soft, compressible, non TTP EXT: no c/c/e Neuro: CN II-XII grossly intact Psych: mood and affect were appropriate Test 12/15/16 14:40 12/15/16 14:57 12/15/16 17:00 12/15/16 18:24 Urine Legionella pneumophilia Ag Negative (Negative) Urine Color Yellow (YELLOW) Urine Appearance Clear (CLEAR,HAZY) Urine pH 5.0 (5.0-8.0) Urine Specific [place] 1.025 (1.003-1.035) Urine Protein Tracemg/dL (NEG,TRACE) Urine Glucose (UA) Negativemg/dL (NEGATIVE) Urine Ketones Tracemg/dL (NEGATIVE) Urine Occult Blood Negative (NEGATIVE) Urine Nitrite Negative (NEGATIVE) Urine Bilirubin Negative (NEGATIVE) Urine Urobilinogen Normalmg/dL (NORMAL) Urine Leukocyte Esterase Negative (NEGATIVE) Urine RBC 0-2/hpf (0-2) Urine WBC 0-5/hpf (0-5) Urine Epithelial Cells None/hpf (NONE-MOD) Urine Crystals None seen (NONE SEEN) Urine Bacteria Few/hpf (NONE-FEW) Urine Hyaline Casts None/lpf (NONE) Urine Granular Casts None seen (NONE SEEN) Urine Waxy Casts None seen (NONE SEEN) Urine Red Blood Cell Casts None seen (NONE SEEN) Urine White Blood Cell Casts None seen (NONE SEEN) Urine Mucus None seen (None Seen) Urine Trichomonas None seen (NONE SEEN) Urine Yeast None (NONE SEEN) Urinalysis Comment Amorphous sediment Urine Culture Reflexed Not indicated Prothrombin Time 11.1sec (8.1-12.5) Prothromb Time International Ratio 1.04ratio Hemoglobin A1c 5.4% (4.8-5.6) Magnesium Level 1.9mg/dL (1.6-2.6) Pro-B-Type Natriuretic Peptide 89005wk/mL (0-738) Thyroid Stimulating Hormone (TSH) 1.430uIU/mL (0.450-4.500) Test 12/15/16 21:15 12/16/16 03:10 12/16/16 13:40 12/17/16 12:45 Creatine Kinase MB 27.7ng/mL (0.0-5.3) Creatine Kinase MB % 13.6% (0.0-5.0) Lipase 14U/L (13-60) Triglycerides Level 48mg/dL (0-149) Cholesterol Level 218mg/dL (100-199) LDL Cholesterol, Calculated 98.400mg/dL (0-99) VLDL Cholesterol 9.600mg/dL HDL Cholesterol 110mg/dL (>39) Cholesterol/HDL Ratio 1.98 (0.0-4.4) Total Creatine Kinase 195U/L (21-215) Activated Partial Thromboplast Time 42.0sec (22.8-33.0) Procalcitonin 3.98ng/mL (See Comment) Test 12/17/16 14:35 12/18/16 06:50 12/19/16 06:04 Haptoglobin 80mg/dL (34-200) Hematology Comments Direct Bilirubin 0.2mg/dL (0.0-0.3) Neutrophils (%) (Auto) 78.3% (40-74) Lymphocytes (%) (Auto) 10.3% (14-46) Monocytes (%) (Auto) 11.1% (4-12) Eosinophils (%) (Auto) 0.1% (0-5) Basophils (%) (Auto) 0.1% (0-3) Lactic Acid Level 0.9mmol/L (0.4-2.0) White Blood Count 6.2th/mm3 (3.8-10.1) Red Blood Count 3.49mil/mm3 (3.90-5.20) Hemoglobin 10.3g/dL (12.0-15.6) Hematocrit 31.7% (35.0-46.0) Mean Corpuscular Volume 90.8fL (81-100) Mean Corpuscular Hemoglobin 29.5pg (27.0-35.0) Mean Corpuscular Hemoglobin Concent 32.5% (32.0-37.0) Red Cell Distribution Width 14.4% (12.3-15.4) Platelet Count 109bil/L (150-400) Sodium Level 138mEq/L (134-144) Potassium Level 4.0mEq/L (3.5-5.2) Chloride Level 106mEq/L (97-108) Carbon Dioxide Level 22mmol/L (18-29) Blood Urea Nitrogen 20mg/dL (8-27) Creatinine 0.77mg/dL (0.57-1.00) Estimat Glomerular Filtration Rate 101mL/min (>59) Glucose Level 107mg/dL (60-99) Calcium Level 7.9mg/dL (8.5-10.1) Total Bilirubin 0.4mg/dL (0.0-1.2) Aspartate Amino Transf (AST/SGOT) 24U/L (0-50) Alanine Aminotransferase (ALT/SGPT) 20U/L (0-32) Alkaline Phosphatase 50U/L (25-165) Troponin T 0.300ug/L (0.0-0.011) Total Protein 4.6g/dL (6.4-8.4) Albumin 2.8g/dL (3.4-5.0) Microbiology Results Laboratory Tests Test 12/18/16 17:10 12/19/16 01:06 12/19/16 06:04 Troponin T 0.371ug/L (0.0-0.011) 0.332ug/L (0.0-0.011) 0.300ug/L (0.0-0.011) White Blood Count 6.2th/mm3 (3.8-10.1) Red Blood Count 3.49mil/mm3 (3.90-5.20) Hemoglobin 10.3g/dL (12.0-15.6) Hematocrit 31.7% (35.0-46.0) Mean Corpuscular Volume 90.8fL (81-100) Mean Corpuscular Hemoglobin 29.5pg (27.0-35.0) Mean Corpuscular Hemoglobin Concent 32.5% (32.0-37.0) Red Cell Distribution Width 14.4% (12.3-15.4) Platelet Count 109bil/L (150-400) Sodium Level 138mEq/L (134-144) Potassium Level 4.0mEq/L (3.5-5.2) Chloride Level 106mEq/L (97-108) Carbon Dioxide Level 22mmol/L (18-29) Blood Urea Nitrogen 20mg/dL (8-27) Creatinine 0.77mg/dL (0.57-1.00) Estimat Glomerular Filtration Rate 101mL/min (>59) Glucose Level 107mg/dL (60-99) Calcium Level 7.9mg/dL (8.5-10.1) Total Bilirubin 0.4mg/dL (0.0-1.2) Aspartate Amino Transf (AST/SGOT) 24U/L (0-50) Alanine Aminotransferase (ALT/SGPT) 20U/L (0-32) Alkaline Phosphatase 50U/L (25-165) Total Protein 4.6g/dL (6.4-8.4) Albumin 2.8g/dL (3.4-5.0) Microbiology 12/16/16 Adenovirus DNA (PCR) - Final, Complete Not Detected 12/16/16 Coronavirus 229E PCR - Final, Complete Not Detected 12/16/16 Coronavirus HKU1 PCR - Final, Complete Not Detected 12/16/16 Coronavirus NL63 PCR - Final, Complete Not Detected 12/16/16 Coronavirus OC43 PCR - Final, Complete Not Detected 12/16/16 Influenza Type A (PCR) - Final, Complete Not Detected 12/16/16 Influenza Type B (PCR) - Final, Complete Not Detected 12/16/16 Human Metapneumovirus (PCR) (BEL) - Final, Complete Not Detected 12/16/16 Rhinovirus (PCR)(BEL) - Final, Complete Not Detected 12/16/16 Parainfluenza Virus Type 1 (PCR) - Final, Complete Not Detected 12/16/16 Parainfluenza Virus Type 2 (PCR) - Final, Complete Not Detected 12/16/16 Parainfluenza Virus Type 3 (PCR) - Final, Complete Not Detected 12/16/16 Parainfluenza Virus Type 4 (NAAT) - Final, Complete Not Detected 12/16/16 Respiratory Syncytial Virus (PCR)MO - Final, Complete Not Detected 12/16/16 Chlamydia pneumoniae (PCR) - Final, Complete Not Detected 12/16/16 Mycoplasma pneumoniae DNA Detection - Final, Complete 12/15/16 Streptococcus pneumoniae Ag Screen - Final, Complete Discharge Medications Discharge Medications Aspirin Chew (Aspirin Chew) 81 Mg Chew 81 MG PO DAILY Prescribed by: KING KUMAR DO Levofloxacin (Levaquin) 500 Mg Tablet 500 MG PO DAILYAC Prescribed by: KING KUMAR DO Metoprolol Tartrate (Metoprolol Tartrate) 25 Mg Tablet 25 MG PO BID Prescribed by: KING KUMAR DO As needed ([Acetaminophen]) 325 MG TABLET 325 MG PO Q6 PRN PRN For Mild Pain Prescribed by: KING KUMAR DO Followup Plan Disposition: Stable condition and discharged to care home facility Discharge Diet: No restrictions Discharge Activity: Other (gradually increase activity as tolerated) Follow-up Provider: Jules Mei DO Follow-up with PCP in: 1 week Time spent Greater than 35 minutes copies to: Jules Mei Precious L DO Dec 19, 2016 13:32
--- NOTE | 2016-12-19 13:45 | NUR ---
Faxed orders to [facility]/placed copy on chart and asked Georgi to arrange transport for 1430. Updated RN and GERENTOLOGICAL PHYSIOTHERAPIST, spoke with patient at bedside and requested we call her son. Informed GERENTOLOGICAL PHYSIOTHERAPIST and she was planning to call and update son.
--- NOTE | 2016-12-19 14:43 | NUR ---
[facility] Report given to [place], answered all questions. Stated understanding.
--- NOTE | 2016-12-19 16:35 | NUR ---
DC to [facility] Pt taken in w/ch to [facility] with oxygen 3 liters. All belongings taken - wallet, in bag, MENA x2/watch in shoe, glasses on, dentures upper and lower in mouth. Dressed pt prior to departure.
== END 2016-12-19 14:58 | DRG 282 ==
LOC: SED 12:42 → PCC 17:18 → MOC 12-17 17:36
PROVIDERS: ADMIT Internal Medicine; ATTEND Internal Medicine
DX: I21.4 Non-ST elevation (NSTEMI) myocardial infarction (principal); Z87.891 Personal history of nicotine dependence; R10.13 Epigastric pain; Z66 Do not resuscitate; Z85.42 Personal history of malignant neoplasm of other parts of uterus; R74.0 Nonspecific elevation of levels of transaminase and lactic acid dehydrogenase [LDH]